=== PATIENT | female | born 1970 | race Asian ===

== ENCOUNTER 2019-03-02 17:25 | Emergency (ER) | payer SELFPAY ==
[~2019-03-02] VITALS: Ht 147.3 cm; Wt 49.0 kg
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
[2019-03-02 17:52] VITALS: BP 126/82
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
[2019-03-02] MEDS ORDERED: Isovue-300 100ml vial INJ PRN (18:15)
[2019-03-02 18:40] LABS: ANION GAP 6 mmol/L (5-15); APPEARANCE,URINE CLEAR; BASOPHILS % (AUTO) 1.3 % (0.0-2.0); BILIRUBIN, URINE NEGATIVE (NEGATIVE); BLOOD UREA NITROGEN 12 mg/dL (7-18); CALCIUM 9.5 MG/DL (8.5-10.1); CARBON DIOXIDE 29 MMOL/L (21-32); CHLORIDE 104 MMOL/L (98-107); COLOR,URINE PALE YELLOW; CREATININE 0.7 MG/DL (0.55-1.30); GLUCOSE, URINE (UA) NEGATIVE (NEGATIVE); HEMATOCRIT 36.3 % (37.0-47.0); HEMOGLOBIN 11.8 G/DL (12.0-16.0); KETONES,URINE NEGATIVE (NEGATIVE); LEUKOCYTE ESTERASE ,URINE NEGATIVE (NEGATIVE); LYMPHOCYTES % (AUTO) 25.3 % (20.0-45.0); MEAN CORPUSCULAR VOLUME 80 FL (80-99); MONOCYTES % (AUTO) 6.6 % (1.0-10.0); NEUTROPHILS % (AUTO) 65.8 % (45.0-75.0); NITRITE,URINE NEGATIVE (NEGATIVE); PH,URINE 6.5 (4.5-8.0); PLATELET COUNT 219 K/UL (150-450); POTASSIUM 3.8 MMOL/L (3.5-5.1); PROTEIN,URINE NEGATIVE (NEGATIVE); RED BLOOD COUNT 4.55 M/UL (4.20-5.40); SODIUM 139 MMOL/L (136-145); UROBILINOGEN,URINE NORMAL MG/DL (0.0-1.0); WHITE BLOOD COUNT 6.5 K/UL (4.8-10.8)
--- NOTE | 2019-03-02 18:43 | NUR ---
ED Nurse Note: RADIOLOGY CALLED FOR CT.
[2019-03-02 18:45] LABS: ALANINE AMINOTRANSFERASE 30 U/L (12-78); ALBUMIN 4.2 G/DL (3.4-5.0); ALKALINE PHOSPHATASE 99 U/L (46-116); ASPARTATE AMINO TRANSFERASE 23 U/L (15-37); BILIRUBIN,TOTAL 0.6 MG/DL (0.2-1.0)
--- NOTE | 2019-03-02 18:51 | NUR ---
ED Nurse Note: PT TO CT VIA SUMEET.
--- NOTE | 2019-03-02 19:00 | NUR ---
ED Nurse Note: REPORT GIVEN TO PAO NEGRETE.
--- NOTE | 2019-03-02 19:01 | NUR ---
ED Nurse Note: received report from PAO Zhou pt currently at [place].
[2019-03-02 19:55] VITALS: BP 113/66
--- NOTE | 2019-03-02 19:56 | NUR ---
ED Nurse Note: PT back from CT, resting at this time, vss, resp even and unlabored on RA, no sx distress, family at the bedside, will cont monitor. pt advised to notify staff if needed assist.
[2019-03-02 20:16] VITALS: BP 105/86
--- NOTE | 2019-03-02 20:16 | NUR ---
Note marquisone in EDM - 03/02/19 at 2017 by MELISSA ED Nurse Note: pt cleared to be d/c per ERMD, pt discharge and aftercare instruction provided w/ prescription, pt education done via discussion and handout, pt advised to follow up with pcp or return to ed if changes in condition, pt vss, resp even and unlabored on RA, iv d/c and id band removed, left w/ all belongings.
--- NOTE | 2019-03-02 20:17 | NUR ---
ED Nurse Note: pt cleared to be d/c per ERMD, pt discharge and aftercare instruction provided, pt education done via discussion and handout, pt advised to follow up with pcp or return to ed if changes in condition, pt vss, resp even and unlabored on RA, iv d/c and id band removed, left w/ all belongings. pt accompanied by supervisor carbon paper coating.
--- NOTE | 2019-03-03 13:53 | Diagnostic Imaging Report ---
Indication: Chest and abdominal pain. Trauma Technique: Continuous helical transaxial imaging of the chest, abdomen and pelvis was obtained from the lung bases to the pubic symphysis during intravenous contrast administration. Multiple phases of enhancement obtained. Coronal 2-D reformats were also obtained. Study obtained in a Siemens sensation [address] Automatic Exposure Control was utilized. Total Dose length Product (DLP): 997.[address] Dose Index Volume (CTDIvol): 13.58,10.47 mGy Comparison: None Findings: The lungs are clear. Bilateral breast implants are present. No mediastinal or pleural fluid identified. The aorta and pulmonary artery, heart appear unremarkable. There is minimal atelectasis at the left lung base. Within the right lobe of the liver, there is an enhancing structure measuring about 1.5 cm consistent with a hemangioma. Gallstone versus polyp noted. There is no free fluid. Uterus is slightly heterogeneous. The bladder is unremarkable. There is no hydronephrosis. There are bilateral renal cysts present. Vacuum phenomena and narrowing of the L5-S1 disc noted. No obvious osseous injury identified. IMPRESSION: No evidence of acute injury. Incidental findings include 1.5 cm hemangioma in the liver, bilateral renal cysts, gallstone versus polyp, degenerative changes at L5-S1. [facility] has communicated the preliminary results to the Emergency Department. Their findings are largely concordant with this report. The CT scanner at [facility] is accredited by the [employer] and the scans are performed using dose optimization techniques as appropriate to a performed exam including Automatic Exposure control.
--- NOTE | 2019-03-03 13:53 | Diagnostic Imaging Report ---
Indication: Back pain Technique: Continuous helical transaxial imaging of the lumbar spine was obtained from the lung bases to the pubic symphysis. Non-ionic contrast was given IV. Coronal 2-D reformats were also obtained. Study obtained in a Siemens sensation [address] Total Dose length Product (DLP): Refer to CT chest abdomen mGycm CT Dose Index Volume (CTDIvol): Refer to CT chest abdomen mGy Comparison: None Findings: There is no evidence of an acute fracture or malalignment. Height and configuration of the vertebral bodies and intervertebral discs are within normal limits at most of the levels. The facets are unremarkable. There is no soft tissue swelling. There is degenerative changes at L5-S1 with a vacuum phenomena and mild narrowing. Impression: Negative lumbar spine CT for acute injury. Degenerative disc disease at L5-S1. Please refer to the CT chest abdomen pelvis report [facility] has communicated the preliminary results to the Emergency Department. Their findings are largely concordant with this report.
== END 2019-03-02 20:17 | disposition home or self-care (01) ==
LOC: EMR 17:55
DX: D18.09 Hemangioma of other sites (principal); R07.9 Chest pain, unspecified; M54.5 Low back pain; R10.9 Unspecified abdominal pain; R11.2 Nausea with vomiting, unspecified
CPT/HCPCS: 36415; 71260; 72132; 74177; 80053; 81003; 81025; 83690; 84484; 85025; 96374; 99284; J2405; Q9967